=== PATIENT | female | born 1960 | race Caucasian/White ===

== ENCOUNTER 2023-09-18 06:26 | Day surgery (SDC) | payer BC, SELFPAY ==
[2023-09-16 13:37] VITALS: BMI 28.5
--- NOTE | 2023-09-16 15:21 | HO.ANESPROP2 ---
Documented by User: Katharine Mitchell NP 09/16/23 15:21 HPI - Anesthesia Eval Consult details Narrative: 63yo F for Colonoscopy PMFSH Past Medical History Medical History Depression COPD (chronic obstructive pulmonary disease) HTN (hypertension) Surgical History Surgical History H/O colonoscopy History of lung surgery Social History Social History Patient Tobacco Use Status: Former Tobacco user Quit Date: 2022 Tobacco use type: Cigarette Cigarette Packs Per Day: 1 Cigarettes Per Day: 20.0 Are you DNR?: No Advance Directives: No Advance Directives Information Provided: Yes Nutrition Risks: No Nutritional Risk Meds Allergies Allergy/AdvReac Type Severity Reaction Status Date / Time No Known Allergies Allergy Verified 09/18/23 06:35 Home Medications Medication Instructions Recorded Confirmed Last Taken Type amlodipine 2.5 mg tablet 2.5 mg PO DAILY 09/16/23 09/16/23 Unknown History atorvastatin 20 mg tablet 20 mg PO BEDTIME 09/16/23 09/16/23 Unknown History bupropion HCl 100 mg tablet,12 hr 100 mg PO BID 09/16/23 09/16/23 Unknown History sustained-release fluticasone fur. 100 mcg-umeclid 1 ea inhalation DAILY 09/16/23 09/16/23 Unknown History 62.5 mcg-vilant 25 mcg inhalat.powder (Trelegy Ellipta) fluticasone furoate 100 1 ea inhalation DAILY 09/16/23 09/16/23 Unknown History mcg-vilanterol 25 mcg/dose inhalation powder fluticasone furoate 200 1 ea inhalation DAILY 09/16/23 09/16/23 Unknown History mcg-vilanterol 25 mcg/dose inhalation powder (Breo Ellipta) hydrochlorothiazide 25 mg tablet 25 mg PO DAILY 09/16/23 09/16/23 09/18/23 History lisinopril 40 mg tablet 40 mg PO DAILY 09/16/23 09/16/23 09/18/23 History sertraline 50 mg tablet 50 mg PO DAILY 09/16/23 09/16/23 Unknown History Exam Height,Weight and Vital Signs: Height 5 ft 2 in Weight 70.76 kg Assessment and Plan Assessment Anesthesia Assessment: Chart Reviewed Documented by User: Kimber Mock MD 09/18/23 07:56 PMFSH Past Medical History Medical History Depression COPD (chronic obstructive pulmonary disease) HTN (hypertension) Surgical History Surgical History H/O colonoscopy History of lung surgery History of Problems with Anesthesia: No Social History Social History Patient Tobacco Use Status: Former Tobacco user Quit Date: 2022 Tobacco use type: Cigarette Cigarette Packs Per Day: 1 Cigarettes Per Day: 20.0 Are you DNR?: No Advance Directives: No Advance Directives Information Provided: Yes Nutrition Risks: No Nutritional Risk Meds Allergies Allergy/AdvReac Type Severity Reaction Status Date / Time No Known Allergies Allergy Verified 09/18/23 06:35 Home Medications Medication Instructions Recorded Confirmed Last Taken Type amlodipine 2.5 mg tablet 2.5 mg PO DAILY 09/16/23 09/16/23 Unknown History atorvastatin 20 mg tablet 20 mg PO BEDTIME 09/16/23 09/16/23 Unknown History bupropion HCl 100 mg tablet,12 hr 100 mg PO BID 09/16/23 09/16/23 Unknown History sustained-release fluticasone fur. 100 mcg-umeclid 1 ea inhalation DAILY 09/16/23 09/16/23 Unknown History 62.5 mcg-vilant 25 mcg inhalat.powder (Trelegy Ellipta) fluticasone furoate 100 1 ea inhalation DAILY 09/16/23 09/16/23 Unknown History mcg-vilanterol 25 mcg/dose inhalation powder fluticasone furoate 200 1 ea inhalation DAILY 09/16/23 09/16/23 Unknown History mcg-vilanterol 25 mcg/dose inhalation powder (Breo Ellipta) hydrochlorothiazide 25 mg tablet 25 mg PO DAILY 09/16/23 09/16/23 09/18/23 History lisinopril 40 mg tablet 40 mg PO DAILY 09/16/23 09/16/23 09/18/23 History sertraline 50 mg tablet 50 mg PO DAILY 09/16/23 09/16/23 Unknown History Exam Airway Mallampati Class: II TM Dist: >3cm Neck ROM: Full Loose/Missing/Broken Teeth: No Heart: RRR Lungs: CTA Assessment and Plan Assessment Anesthesia Assessment: Anesthesia Plan Discussed Final Anesthetic Review History of Problems with Anesthesia: No NPO: Yes ASA Class: II Final Preanesthetic Review: Meds/Allgs Chart Reviewed, Consent Obtained/Reviewed and Anes Risks/Benef Reviewed Patient Risk: Low Procedure Risk: Low Anesthetic Plan Anesthetic Plan: MAC: Disposition: Standard PACU
--- OUTSIDE RECORDS SUMMARY | 2023-09-18 06:28 | XMS_ITS | Continuity of Care Document ---
Author Name Unknown Organization [facility] Pulmonary ed[facility] Address [address] [place] [address]- Care Team Providers Care Single Spindle Screw Machine Operator Name Role Phone Desi PORTILLO, Lorenza Primary Care Physician [phone] Encounter [facility] [place] Date(s): 06/04/21 - 07/04/21 [facility] [address] [place] [address] Attending Physician: Asif Quesada Admitting Physician: Asif Quesada Referring Physician: AdmtrAsif Allergies, Adverse Reactions, Alerts Substance Reaction Severity Status NKA Active Immunizations Given and Recorded Vaccine Date Status Refusal Reason Tetanus Toxoid Vaccine (oldterm) 08/21/03 Given Medications Lisinopril Tablet 10, mg, By Mouth, Daily, 90, 0, 0, 0, 02/15/07 9:55:09, ADS [facility]PP[facility], [address] [place] [address], [id number], Constant Indicator Start Date: 02/15/07 Stop Date: 05/16/07 Status: Ordered Lisinopril Tablet 10, mg, By Mouth, Daily, 30, 6, 0, 6, 08/05/05 14:52:53, Print ADOLFO Number, [address] [place] [address], [phone], Constant Indicator Start Date: 08/05/05 Stop Date: 09/04/05 Status: Ordered Lorazepam Tablet 0.5, mg, By Mouth, 3 times a day, 90, 0, 0, 07/10/05 10:07:18, Print ADOLFO Number, 68, Constant Indicator Start Date: 07/10/05 Stop Date: 08/09/05 Status: Ordered Paxil Tablet 20, mg, By Mouth, Daily, 90, 3, 0, 3, 01/16/06 15:54:21, Print ADOLFO Number, [facility], [address] [place] [address], [phone], Constant Indicator Start Date: 01/16/06 Stop Date: 04/16/06 Status: Ordered Problem List Condition Effective Dates Status Health Status Inform ant Depression(Confirmed)(Stable) 2002 Active Hypertension(Confirmed)(Stable) 2003 Active
--- OUTSIDE RECORDS SUMMARY | 2023-09-18 06:28 | XMS_ITS | Continuity of Care Document ---
Author Name Unknown Organization [facility] Address [address] [facility] [place] [address]- Care Team Providers Care Dcs Engineer Name Role Phone Desi PORTILLO, Lorenza Primary Care Physician [phone] Encounter 12/02/21 - 12/09/21 [facility] [address] [facility], [address] [place] [address]- Attending Physician: Lorenza Weeks NP Admitting Physician: Lorenza Weeks NP Referring Physician: Lorenza Weeks NP Allergies, Adverse Reactions, Alerts No Known Allergies Immunizations Given and Recorded Vaccine Date Status Refusal Reason Tetanus Toxoid Vaccine (oldterm) 08/21/03 Given Medications Lisinopril Tablet 10, mg, By Mouth, Daily, 90, 0, 0, 0, 02/15/07 9:55:09, [facility], [address] [place] [address], [id number], Constant Indicator Start Date: 02/15/07 Stop Date: 05/16/07 Status: Ordered Lisinopril Tablet 10, mg, By Mouth, Daily, 30, 6, 0, 6, 08/05/05 14:52:53, Print ADOLFO Number, [address] [place] [address], [id number], Constant Indicator Start Date: 08/05/05 Stop Date: 09/04/05 Status: Ordered Lorazepam Tablet 0.5, mg, By Mouth, 3 times a day, 90, 0, 0, 07/10/05 10:07:18, Print ADOLFO Number, 68, Constant Indicator Start Date: 07/10/05 Stop Date: 08/09/05 Status: Ordered Paxil Tablet 20, mg, By Mouth, Daily, 90, 3, 0, 3, 01/16/06 15:54:21, Print ADOLFO Number, [facility], [address] [place] [address], [id number], Constant Indicator Start Date: 01/16/06 Stop Date: 04/16/06 Status: Ordered Problem List Condition Effective Dates Status Health Status Inform ant Depression(Confirmed)(Stable) 2002 Active Hypertension(Confirmed)(Stable) 2004 Active
--- OUTSIDE RECORDS SUMMARY | 2023-09-18 06:28 | XMS_ITS | Continuity of Care Document ---
Author Name Unknown Organization [facility] Address [address] [facility] [place] [address]- Care Team Providers Care Typer Name Role Phone Desi PORTILLO, Lorenza Primary Care Physician Encounter 12/26/22 - 01/02/23 [facility] [address] [facility], [address] [place] [address]- Attending Physician: Lorenza Weeks NP Admitting Physician: Lorenza Weeks NP Referring Physician: Lorenza Weeks NP Allergies, Adverse Reactions, Alerts No Known Allergies Immunizations Given and Recorded Vaccine Date Status Refusal Reason Tetanus Toxoid Vaccine (oldterm) 08/21/03 Given Medications Lisinopril Tablet 10, mg, By Mouth, Daily, 90, 0, 0, 0, 02/15/07 9:55:09, [facility], [address] [place] [address], [phone]+[phone], Constant Indicator Start Date: 02/15/07 Stop Date: 05/16/07 Status: Ordered Lisinopril Tablet 10, mg, By Mouth, Daily, 30, 6, 0, 6, 08/05/05 14:52:53, Print ADOLFO Number, [address] [place] [address], [id number], Constant Indicator Start Date: 08/05/05 Stop Date: 09/04/05 Status: Ordered Lorazepam Tablet 0.5, mg, By Mouth, 3 times a day, 90, 0, 0, 07/10/05 10:07:18, Print ADOLFO Number, 68, Constant Indicator Start Date: 07/10/05 Stop Date: 08/09/05 Status: Ordered Paxil Tablet 20, mg, By Mouth, Daily, 90, 3, 0, 3, 01/16/06 15:54:21, Print ADOLFO Number, ADS [facility], [address] [facility] [place] [place] [address], [phone], Constant Indicator Start Date: 01/16/06 Stop Date: 04/16/06 Status: Ordered Problem List Condition Confirmation Course Effective Dates Status Health St atus Informant Depression Confirmed Stable 2002 Active Hypertension Confirmed Stable 2003 Active Results Radiology Reports * Exam Date Time Procedure Performing Provider Status 12/26/22 11:30 AM MM Digital Mammo Screening Yeni Marino; Auth (Verified) Notes: (MM Digital Mammo Screening) Reason For Exam: Z12.31 SCREENING RESULT: MM Digital Mammo Screening PROCEDURE: MM Digital Mammo Screening INDICATION: Screening for breast cancer. No known palpable abnormalities. One first degree relativewith breast cancer. COMPARISON: Multiple priors dating back to 04/19/2019. TECHNIQUE: Full-field digital CC and MLO 3D tomosynthesis images of both breasts were acquired. Computer-aided detection (CAD) was utilized in the interpretation of this study. DENSITY: The breast tissue contains scattered areas of fibroglandular density. FINDINGS: No suspicious masses, suspicious microcalcifications, or areas of architectural distortion are seen in either breast to suggest malignancy. IMPRESSION: No mammographic evidence of malignancy. RECOMMENDATION: Annual mammographic screening BI-RADS: 1 (Negative) Lay letter mailed to patient I have personally reviewed the images and I agree with this report. WSN: [id number] Ordering Physician: Lorenza Weeks Dictated By: Jasen Goncalves MD Dictated Date/Time: 12/26/22 3:40 pm Reviewed By: Rebeka Eagle MD Signed By: Rebeka Eagle MD Signed Date/Time: 12/26/22 3:45 pm Transcribed By: KENA Production Consultant Date/Time: 12/26/22 1:58 pm Birads: MG Breast Screening * BHSPowerscribe , CIS S: TRANSCRIBE Rebeka Eagle MD: VERIFY Jasen Goncalves MD: SIGN Event Display: Result: Authored Date: [id number] PROCEDURE: MM Digital Mammo Screening INDICATION: Screening for breast cancer. No known palpable abnormalities. One first degree relativewith breast cancer. COMPARISON: Multiple priors dating back to 04/19/2019. TECHNIQUE: Full-field digital CC and MLO 3D tomosynthesis images of both breasts were acquired. Computer-aided detection (CAD) was utilized in the interpretation of this study. DENSITY: The breast tissue contains scattered areas of fibroglandular density. FINDINGS: No suspicious masses, suspicious microcalcifications, or areas of architectural distortion are seen in either breast to suggest malignancy. IMPRESSION: No mammographic evidence of malignancy. RECOMMENDATION: Annual mammographic screening BI-RADS: 1 (Negative) Lay letter mailed to patient I have personally reviewed the images and I agree with this report. WSN: [id number] Ordering Physician: Lorenza Weeks Dictated By: Jasen Goncalves MD Dictated Date/Time: 12/26/22 3:40 pm Reviewed By: Rebeka Eagle MD Signed By: Rebeka Eagle MD Signed Date/Time: 12/26/22 3:45 pm Transcribed By: KENA Production Consultant Date/Time: 12/26/22 1:58 pm Birads: Patient Care team information Care Team Personnel Name: Lorenza Weeks NP Position: [facility] Outreach Member Role: PCP Address: Address: [address] [place] [address] [place] [address]- Care Team Related Persons Name: JOE HODGES Name: CORBIN BYRD Address: [address], [address]
--- OUTSIDE RECORDS SUMMARY | 2023-09-18 06:28 | XMS_ITS | Continuity of Care Document ---
Author Name Unknown Organization [facility] Pulmonary edicine Address [address] [place] [address]- Care Team Providers Care Practice Coordinator Name Role Phone Lorenza Weeks NP Primary Care Physician Encounter [facility] [place] ACCT R [id number] Date(s): 05/31/20 - 06/30/20 [facility] [address] [place] [address]- [facility] Attending Physician: Asif Quesada Admitting Physician: AdmtrAsif Referring Physician: Admtr, ArYimi Allergies, Adverse Reactions, Alerts Substance Reaction Severity Status NKA Active Immunizations Given and Recorded Vaccine Date Status Refusal Reason Tetanus Toxoid Vaccine (oldterm) 08/21/03 Given Medications Lisinopril Tablet 10, mg, By Mouth, Daily, 90, 0, 0, 0, 02/15/07 9:55:09, ADS [facility], [address] [place] [address], [id number]+[id number], Constant Indicator Start Date: 02/15/07 Stop Date: 05/16/07 Status: Ordered Lisinopril Tablet 10, mg, By Mouth, Daily, 30, 6, 0, 6, 08/05/05 14:52:53, Print ADOLFO Number, [address] [place] [address], [id number], Constant Indicator Start Date: 08/05/05 Stop Date: 09/04/05 Status: Ordered Lorazepam Tablet 0.5, mg, By Mouth, 3 times a day, 90, 0, 0, 07/10/05 10:07:18, Print ADOLFO Number, 68, Constant Indicator Start Date: 07/10/05 Stop Date: 08/09/05 Status: Ordered Paxil Tablet 20, mg, By Mouth, Daily, 90, 3, 0, 3, 01/16/06 15:54:21, Print ADOLFO Number, [facility], [address] [place] [address], [id number], Constant Indicator Start Date: 01/16/06 Stop Date: 04/16/06 Status: Ordered Problem List Condition Effective Dates Status Health Status Inform ant Depression(Confirmed)(Stable) 2002 Active Hypertension(Confirmed)(Stable) 2003 Active
--- OUTSIDE RECORDS SUMMARY | 2023-09-18 06:29 | XMS_ITS | Continuity of Care Document ---
Author Name Unknown Organization [facility] Pulmonary M edicine Address [address] [place] [address]- Care Team Providers Care Molded Goods Embossing Press Operator Name Role Phone Lorenza Weeks NP Primary Care Physician [phone] Encounter [facility] ACCT R [id number] Date(s): 12/23/19 - 01/02/20 [facility] [address] [place] [address] [facility] Attending Physician: Asif Quesada Admitting Physician: AdmAsif royal Referring Physician: AdmtrAsif Allergies, Adverse Reactions, Alerts Substance Reaction Severity Status NKA Active Immunizations Given and Recorded Vaccine Date Status Refusal Reason Tetanus Toxoid Vaccine (oldterm) 08/21/03 Given Medications Lisinopril Tablet 10, mg, By Mouth, Daily, 90, 0, 0, 0, 02/15/07 9:55:09, ADS [facility], [address] [place] [address], [phone], Constant Indicator Start Date: 02/15/07 Stop Date: 05/16/07 Status: Ordered Lisinopril Tablet 10, mg, By Mouth, Daily, 30, 6, 0, 6, 08/05/05 14:52:53, Print ADOLFO Number, [address] [place] [address], [id number], Constant Indicator Start Date: 08/05/05 Stop Date: 09/04/05 Status: Ordered Lorazepam Tablet 0.5, mg, By Mouth, 3 times a day, 90, 0, 0, 07/10/05 10:07:18, Print ADOLFO Number, 68, Constant Indicator Start Date: 07/10/05 Stop Date: 08/09/05 Status: Ordered Paxil Tablet 20, mg, By Mouth, Daily, 90, 3, 0, 3, 01/16/06 15:54:21, Print ADOLFO Number, ADS [facility]PP[facility], [address] [place] [address], [phone]+[phone], Constant Indicator Start Date: 01/16/06 Stop Date: 04/16/06 Status: Ordered Problem List Condition Effective Dates Status Health Status Inform ant Depression(Confirmed)(Stable) 2002 Active Hypertension(Confirmed)(Stable) 2003 Active
--- OUTSIDE RECORDS SUMMARY | 2023-09-18 06:29 | XMS_ITS | Continuity of Care Document ---
Author Name Unknown Organization [facility] Pul[facility] M ed[facility] Address [address] [place] [address]- Care Team Providers Care Refinisher Name Role Phone Lorenza Weeks NP Primary Care Physician [phone] Encounter [facility] [place]CT [place] [id number] Date(s): 01/30/20 - 02/09/20 [facility] Pul[facility] Medicine [address] [place] [address] [facility] Attending Physician: Asif Quesada Admitting Physician: AdmAsif royal Referring Physician: AdmtrAsif Allergies, Adverse Reactions, Alerts Substance Reaction Severity Status NKA Active Immunizations Given and Recorded Vaccine Date Status Refusal Reason Tetanus Toxoid Vaccine (oldterm) 08/21/03 Given Medications Lisinopril Tablet 10, mg, By Mouth, Daily, 90, 0, 0, 0, 02/15/07 9:55:09, ADS [facility], [address] [place] [address], [id number], Constant Indicator Start Date: 02/15/07 Stop Date: 05/16/07 Status: Ordered Lisinopril Tablet 10, mg, By Mouth, Daily, 30, 6, 0, 6, 08/05/05 14:52:53, Print ADOLFO Number, [address] [place] [address], [id number], Constant Indicator Start Date: 08/05/05 Stop Date: 09/04/05 Status: Ordered Lorazepam Tablet 0.5, mg, By Mouth, 3 times a day, 90, 0, 0, 07/10/05 10:07:18, Print ADOLFO Number, 68, Constant Indicator Start Date: 07/10/05 Stop Date: 08/09/05 Status: Ordered Paxil Tablet 20, mg, By Mouth, Daily, 90, 3, 0, 3, 01/16/06 15:54:21, Print ADOLFO Number, ADS [facility]PPT, [address] [place] [address], [id number], Constant Indicator Start Date: 01/16/06 Stop Date: 04/16/06 Status: Ordered Problem List Condition Effective Dates Status Health Status Inform ant Depression(Confirmed)(Stable) 2002 Active Hypertension(Confirmed)(Stable) 2003 Active
--- OUTSIDE RECORDS SUMMARY | 2023-09-18 06:29 | XMS_ITS | Patient Health Record ---
Author Name Unknown Organization [facility] Address [address] [place] [address] Care Team Providers Care Physician Locums Urgent Care Name Role Phone Desi PORTILLO, Lorenza Primary Care Provider Francisco Escoto Jr Unavailable ALLERGIES No Known Allergies REASON FOR REFERRAL No Information MEDICATIONS Medication SIG (Take, Route, Frequency, Duration) Notes Start Date End Date Status Breo Ellipta 200-25 MCG/ACT INHALE ONE P UFF INTO THE LUNGS DAILY DIRECTED Inhalation for 30 Active hydroCHLOROthiazide 25 MG TAKE ONE TABLE T BY MOUTH EVERY DAY Oral for 90 Active Fluticasone Furoate-Vilanter ol 100-25 MCG/ACT INHALE ONE PUFF BY MOUTH EVERY DAY Inhalation for 30 Active buPROPion HCl ER (SR) 100 MG Oral for 30 Active MiraLax (colon prep) 17 GM/SCOOP mixed with Gatorade or Crystal Light Orally begin at 5:00 p.m. the day before the procedure for 1 day 07/20/2023 Active Atorvastatin Calcium 20 MG TAKE ONE TABL ET BY MOUTH AT BEDTIME Oral for 90 Active amLODIPine Besylate 2.5 MG TAKE ONE TABL ET BY MOUTH EVERY DAY Oral for 90 Active Lisinopril Active Trelegy Ellipta 100-62.5-25 MCG/ACT Inhalation for 90 Active Sertraline HCl 50 MG TAKE 1 TABLET BY MOUTH DAILY Oral for 90 Active IMMUNIZATIONS Vaccine Route Administration Date Status Comme nts Influenza Unknown 06/19/2019 Administered Influenza Unknown 08/05/2022 Administered SOCIAL HISTORY Tobacco Use: Social History Observation Description Date Details (start date - stop date) Former Smoker NA - NA Sex Assigned At : Social History Observation Description Sex Assigned At Unknown Tobacco Use/Smoking Question Answer Notes Patient is a former smoker How long has it been since you last smoked? 1-3 months PROBLEMS Problem Type ICD Code Onset Dates Problem Status W/U Status Risk SNOMED Code Notes Problem Colon cancer screening (Z12.11) Active confirmed 342600527 Problem [facility] (current) use of aspirin (Z79.82) Active confirmed 885540007 Problem Encounter for other preprocedural examination (Z01.818) Active confirmed 118078751 Problem Change in bowel movement (R19.8) Active confirmed [id number] Encounters Encounter Location Date Provider Diagnosis [facility] [address] [place] [phone] 09/18/2023 Francisco Rivera Jr [facility] [address] [place] [address] 07/20/2023 Francisco Rivera Jr Colon cancer screening Z12.11 and Change in bowel movement R19.8 ASSESSMENTS Encounter Date Diagnosis Assessment Notes Treatment Notes Treatment Clinical Notes 07/20/2023 Colon cancer screening (ICD-10 - Z12.11) Colonoscopy material was printed,Colon cancer screening material was printed 07/20/2023 Change in bowel movement (ICD-10 - R19.8) PLAN OF TREATMENT Future Test Test Name Order Date COLONOSCOPY 04/10/2016 COLONOSCOPY 02/15/2020 COLONOSCOPY 07/20/2023 Next Appt Details Provider Name:Francisco eldridge Jr, 09/18/2023 07:30:00 AM, [address] [place] [address] , [place], [place], [phone], Insurance Providers Payer Name Payer Address Payer Phone Subscriber Number Group Number Insured Name Patient Relationship to Insured Coverage Start Date Coverage End Date [facility] [address] [place], [place] [id number] [phone] [id number] LITZY BYRD Self - patient is the insured MEDICAL (GENERAL) HISTORY Medical History History ICD Code Hypertension Colonoscopy 08/03, multiple adenomas, th ree-year followup. COPD Depression Surgical History Surgery Date(Month/Year) Lung surgery for a bleb 1989
--- OUTSIDE RECORDS SUMMARY | 2023-09-18 06:29 | XMS_ITS | Continuity of Care Document ---
Author Name Unknown Organization [facility] Address [address] [place] [address]- Care Team Providers Care Dinkey Brakeman Name Role Phone Desi PORTILLO, Lorenza Primary Care Physician Encounter [facility] [place] Date(s): 07/16/22 - 08/15/22 [facility] [address] [place] [address] Attending Physician: Asif Quesada Admitting Physician: AdmAsif royal Referring Physician: AdmtrAsif Allergies, Adverse Reactions, Alerts No Known Allergies Immunizations Given and Recorded Vaccine Date Status Refusal Reason Tetanus Toxoid Vaccine (oldterm) 08/21/03 Given Medications Lisinopril Tablet 10, mg, By Mouth, Daily, 90, 0, 0, 0, 02/15/07 9:55:09, ADS [facility]PP[facility], [address] [place] [address], [id number]+[id number], Constant Indicator Start Date: 02/15/07 Stop Date: 05/16/07 Status: Ordered Lisinopril Tablet 10, mg, By Mouth, Daily, 30, 6, 0, 6, 08/05/05 14:52:53, Print ADOLFO Number, [address] [place] [address], [phone]+[id number], Constant Indicator Start Date: 08/05/05 Stop Date: 09/04/05 Status: Ordered Lorazepam Tablet 0.5, mg, By Mouth, 3 times a day, 90, 0, 0, 07/10/05 10:07:18, Print ADOLFO Number, 68, Constant Indicator Start Date: 07/10/05 Stop Date: 08/09/05 Status: Ordered Paxil Tablet 20, mg, By Mouth, Daily, 90, 3, 0, 3, 01/16/06 15:54:21, Print ADOLFO Number, [facility], [address] [place] [address], [phone]+[id number], Constant Indicator Start Date: 01/16/06 Stop Date: 04/16/06 Status: Ordered Problem List Condition Confirmation Course Effective Dates Status Health St atus Informant Depression Confirmed Stable 2002 Active Hypertension Confirmed Stable 2003 Active Patient Care team information Personnel Name: Lorenza Weeks NP Address: Address: [address] [place] [address] Internal Medicine [place], [place] [address]
[2023-09-18 06:33] VITALS: BMI 28.6
[2023-09-18] MEDS: Lactated Ringers 1,000 ML 100 ML IVCONT (06:38)
[2023-09-18 06:46] VITALS: BP 137/66; PULSE 66; RESP 18; TEMP 36.6; O2SAT 98
--- NOTE | 2023-09-18 07:24 | P.HPSUR_ITS ---
Pre-Procedural Eval Section A Date of Service: 09/18/23 Section B Chief Complaint: Encounter for screening for malignant neoplasm of Details of Present Illness: see H&P no changes Relevant Family History (Specify if Yes): No Relevant Social History: None Present Medications: see Short Stay Collaborative assessment Medical History: No relevant PMH History of Previous Operations: No relevant previous surgery Allergies: Allergies Allergy/AdvReac Type Severity Reaction Status Date / Time No Known Allergies Allergy Verified 09/18/23 06:35 Review of Systems Sugical H&P ROS: Negative: Constitution, Cardiovascular, Respiratory, Neurolo gical, Psychiatric, Hem-Onc, Allergic/Immunologic, Gastrointestinal, Genitourinary, Musculoskeletal, Integumentary, Endocrine and Eyes/Ears/Nose/Throat Exam Surgical H&P Exam: Normal: HEENT, Normal: Heart, Normal: Lungs, Normal: Extremities, Normal: Abdomen, Normal: Skin and Normal: Neurological Plan Diagnosis/Plan: Unchanged I have reviewed the history and physical and performed a pertinent physical examination on my patient. No changes have occurred unless specified. Time Spent With Patient Time: Total time managing care of this patient today ____ minutes.
[2023-09-18 08:02] VITALS: BP 88/43; PULSE 87; RESP 16; TEMP 36.6; O2SAT 95
[2023-09-18 08:17] VITALS: BP 96/52; PULSE 73; RESP 18; TEMP 36.1; O2SAT 99
--- NOTE | 2023-09-18 10:43 | OP_ITS ---
DATE OF SERVICE: 09/18/2023 SURGEON: Francisco Rivera MD INDICATIONS: Colon cancer screening and prior history of adenomatous colon polyps. PREOPERATIVE DIAGNOSIS: POSTOPERATIVE DIAGNOSIS: PROCEDURE PERFORMED: ESTIMATED BLOOD LOSS: COMPLICATIONS: ANESTHESIA: Monitored anesthesia care. ASSISTANTS: SPECIMENS: PROCEDURE: Colonoscopy to the cecum with biopsy. DESCRIPTION OF PROCEDURE: A history and physical was performed. The risks and benefits of the procedure were explained to the patient. Informed consent was obtained. The patient was placed in the left lateral decubitus position. A digital rectal exam was performed and was found to be normal. The Olympus pediatric video colonoscope was introduced into the rectum and advanced to the cecum. The cecum was identified by transillumination, palpation, and identification of ileocecal valve. Examination was performed. The scope was removed. She tolerated the procedure well and was taken to recovery area in stable condition. FINDINGS: The terminal ileum was not examined. The visualized colonic mucosa was normal. There was some stool coating the mucosa in the right colon and proximal transverse colon. This was washed and suctioned. Two polyps were identified and removed with biopsy forceps, both measured less than 5 mm. These were located at 30 cm into the rectum, there was mild sigmoid diverticulosis. Retroflexed examination showed some hypertrophic anal papillae. IMPRESSION: Colon polyps. RECOMMENDATION: Follow up the biopsy results. MD ZOE Arce/MODL / [id number]
== END 2023-09-18 08:38 | disposition home or self-care (01) ==
PROVIDERS: PCP Nurse Practitioner Family; Visit Provider Internal Medicine Gastroenterology
PROC: 0DJD8ZZ Inspection of Lower Intestinal Tract, Via Natural or Artificial Opening Endoscopic (ICD-10-PCS; CPT 45378; principal; 2023-09-18 07:30)
DX: Z12.11 Encounter for screening for malignant neoplasm of colon (principal); Z86.010 Personal history of colon polyps; K63.5 Polyp of colon; K62.1 Rectal polyp; K57.30 Diverticulosis of large intestine without perforation or abscess without bleeding; K62.89 Other specified diseases of anus and rectum; J44.9 Chronic obstructive pulmonary disease, unspecified; I10 Essential (primary) hypertension; F32.A Depression, unspecified; Z79.899 Other long term (current) drug therapy; Z80.51 Family history of malignant neoplasm of kidney; Z87.891 Personal history of nicotine dependence; Z98.890 Other specified postprocedural states; Z79.51 Long term (current) use of inhaled steroids
CPT/HCPCS: 45380; 88305; J2704